=== PATIENT | female | born 1950 | race Caucasian/White ===

== ENCOUNTER 2017-02-23 19:31 | Inpatient (IN) ==
--- NOTE | 2017-02-23 19:48 | Diag Imaging Result Doc PS360 ---
HEAD W/O CONTRAST - 02/23/2017 INDICATION: poss cva TECHNIQUE: A CT dose reduction protocol was used. COMPARISON: 05/19/2015 FINDINGS: The ventricles and sulci are normal in size and contour. No intracranial mass or hemorrhage. The skull is intact. The sinuses mastoids and middle ears are clear. IMPRESSION: Negative exam. Electronically signed by Luis Colorado 02/23/2017 7:46 PM
[2017-02-23 20:47] LABS: MANUAL DIFF NEEDED? NO; URINE CULTURE NEEDED? NO; URINE MICRO REVIEW NEEDED? NO; URINE SOURCE CATH
[2017-02-23 20:53] LABS: BASO% 0.5 % (0.0-0.8); EOS# 0.09 X1000 (0.0-0.7); EOS% 0.6 % (0.0-10.0); HEMATOCRIT 41.7 % (37.0-47.0); HEMOGLOBIN 13.6 g/dL (12.0-16.0); IMM GRAN# 0.04 X1000 (0.0-0.04); IMM GRAN% 0.3 % (0.0-0.5); LYMPH# 2.97 X1000 (1.2-3.4); LYMPH% 20.4 % (20.5-51.1); MCH 29.5 PG (27-31); MCHC 32.6 g/dL (33-37); MCV 90.5 FL (81-99); MONO# 1.13 X1000 (0.11-0.59); MONO% 7.8 % (1.7-9.3); MPV 10.8 FL (7.4-10.4); NEUT% 70.4 % (42.2-75.2); PLT 496 X1000 (130-400); RBC 4.61 XMIL (4.2-5.4)
[2017-02-23 20:54] LABS: BILIRUBIN URINE NEGATIVE (NEGATIVE); BLOOD URINE NEGATIVE (NEGATIVE); COLOR YELLOW; GLUCOSE URINE NEGATIVE (NEGATIVE); LEUKOCYTES URINE NEGATIVE (NEGATIVE); NITRITE URINE NEGATIVE (NEGATIVE); PH URINE 5.5; PROTEIN URINE 50 mg/dL (NEGATIVE); SP GRAVITY URINE 1.023; TURBIDITY URINE CLEAR (CLEAR); UROBILINOGEN URINE NORMAL (NORMAL)
[2017-02-23 20:55] LABS: UR EPITHELIAL CELLS <10 /HPF (<10); URINE BACTERIA NEGATIVE /HPF; URINE RBC <10 /HPF (<10); URINE WBC <10 /HPF (<10)
[2017-02-23 21:02] LABS: INR 1.02; PROTIME 10.7 Seconds (9.2-11.7); PTT 25.8 Seconds (22.0-36.0)
[2017-02-23 21:06] LABS: ALLEN TEST YES; BE 1.9 mmoll (-3.0-3.0); BLOOD TYPE ARTERIAL; DRAW SITE R RADIAL; METHB 1.5 % (0.0-1.5); O2(CT) 17.7 mL/dL (15.0-23.0); PO2(98.6) 83 mmHg (60-100); SAMPLE BLOOD; THB 14.2 g/dL (11.5-17.4); pH(98.6) 7.31 (7.35-7.45)
[2017-02-23 21:10] LABS: PCO2(98.6) 59 mmHg (35-45)
[2017-02-23 21:10] LABS: AGAP 24; ALBUMIN 4.5 g/dL (3.5-5.0); ALKALINE PHOSPHATASE 127 U/L (32-104); BUN 15 mg/dL (8-22); CALCIUM 10.3 mg/dL (8.8-10.2); CHLORIDE 92 mmol/L (98-107); CK PROFILE 27 U/L (24-173); COSMO 274; GOT 11 U/L (10-30); GPT < 5 U/L (10-36); POTASSIUM 3.3 mmol/L (3.5-5.1); SODIUM 135 mmol/L (136-145); TCO2 19 mmol/L (25-35); TOTAL PROTEIN 7.5 g/dL (6.3-8.3); UR AMPHETAMINES QUAL NONE DETECTED (NONE DETECT); UR BARBITUATES QUAL NONE DETECTED (NONE DETECT); UR BENZODIAZEPIN QUAL PRESUMPTIVE POSITIVE (NONE DETECT); UR CANNABINOIDS QUAL NONE DETECTED (NONE DETECT); UR COCAINE QUAL NONE DETECTED (NONE DETECT); UR METHADONE QUAL NONE DETECTED (NONE DETECT); UR OPIATES QUAL PRESUMPTIVE POSITIVE (NONE DETECT); UR OXYCODONE QUAL PRESUMPTIVE POSITIVE (NONE DETECT); UR PCP QUAL NONE DETECTED (NONE DETECT)
[2017-02-23 21:11] LABS: MODALITY CANNULA
--- NOTE | 2017-02-23 21:38 | Diag Imaging Result Doc PS360 ---
CHEST-PORTABLE - 02/23/2017 INDICATION: AMS TECHNIQUE: COMPARISON: 05/19/2015 FINDINGS: There are surgical changes to the cervical spine. Surgical clips are injected over the right neck and right upper lobe. These are stable from prior. No focal infiltrates, pneumothorax, or pleural effusion. Heart size and pulmonary vascularity is top normal. IMPRESSION: No acute disease. Electronically signed by Luis Colorado 02/23/2017 9:35 PM
--- NOTE | 2017-02-23 21:45 | PROVIDER DOCUMENTATION ---
This chart was entered by Catina Yarbrough Scribe, acting as scribe for Damien Tiwari MD. HPI-Neurological Disorder - General Chief Complaint: Stroke-Like Symptoms Stated Complaint: seizure Time Seen by Provider: 02/23/17 19:49 Source: family, EMS Allergies/Adverse Reactions: Patient Allergies Allergy/AdvReac Type Severity Reaction Status Date / Time onion Allergy Unknown Verified 02/23/17 20:21 Sulfa (Sulfonamide Allergy "put me in Verified 02/23/17 20:21 Antibiotics) a coma" clarithromycin [From Biaxin] AdvReac NAUSEA Verified 02/23/17 20:21 Home Medications: Home Medication List Medication Instructions Recorded Confirmed Last Taken Type Carisoprodol [Soma] 350 mg PO Q6-8H PRN PRN 05/19/15 05/19/15 Unknown History Morphine Sulfate [Ms Contin] 60 mg PO BID 05/19/15 05/19/15 Unknown History Oxycodone HCl/Acetaminophen 1 tab PO Q8H PRN 05/19/15 05/19/15 Unknown History [Percocet 10-325 mg Tablet] Promethazine [Phenergan] 25 mg PO Q12H PRN PRN 05/19/15 05/19/15 Unknown History - History of Present Illness-Neuro Nature of Presenting Problem: 67 Y/O F presents to ER by EMS after having Seizure. EMS states that they were called for seizure for 20 mins. EMS states that pt was out in from last night after seizure and started seizing again. Severity: reports: moderate Onset/Duration: reports: just prior to arrival Timing: reports: improving Associated Symptoms: reports: seizures Review of Systems - Adult - REVIEW OF SYSTEMS - ADULT Constitutional: reports: no symptoms reported Eyes: reports: no symptoms reported Ears, Nose, Mouth & Throat: reports: no symptoms reported Cardiovascular: reports: no symptoms reported Respiratory: reports: no symptoms reported Gastrointestinal: reports: no symptoms reported Genitourinary: reports: no symptoms reported Musculoskeletal: reports: no symptoms reported Integumentary: reports: no symptoms reported Neurological: reports: see HPI, seizure Psychiatric: reports: no symptoms reported Endocrine: reports: no symptoms reported Hematologic/Lymphatic: reports: no symptoms reported Allergic/Immunologic: reports: no symptoms reported All Other Systems: Reviewed and Negative Past History - Adult - PAST MEDICAL HISTORY-ADULT Review of Records: reports: Old Records Reviewed, Nursing Assessment Review Cardiovascular: reports: AL Gastrointestinal: reports: GERD Musculoskeletal: reports: chronic pain (on Oxycodone 10, Soma, Morphine ER 60-- all TID), orthopedic injury Endocrine/Immune: reports: thyroid disorder Other Conditions: reports: MRSA (staph) - PRIOR SURGERIES/PROCEDURES Surgical/Procedure History: reports: cholecystectomy, hysterectomy - IMMUNIZATION STATUS Childhood Immunizations: See Nurse Assessment Flu Vaccine: See Nurse Assessment - SOCIAL HISTORY Smoking: cigarettes Provider spent 3-5 mins advising pt. on dangers of tobacco.: Discussed manners to quit use, and f/u contacts for add'l counseling. Physical Exam- Neurological - Physical Exam-Neuro Initial Vital Signs Reviewed: Yes General Appearance: mild distress, combative Eye Exam: bilateral eye: abnormal pupil, other (deviation to L) HENMT: moist mucous membranes, normal ENT inspection, TMs normal Head Injury: no evidence of injury. negative: active bleeding Neck: non-tender, full range of motion, supple Respiratory: chest non-tender, lungs clear, normal breath sounds, no pleuratic chest pain Cardiovascular: no edema, no gallop, tachycardia Abdominal Exam: normal bowel sounds, non tender, soft Extremity: normal inspection. negative: no pedal edema, no calf tenderness impregnating helper Exam: abnormal eye position (to Right). negative: facial droop Motor/Sensory: positive Babinski's sign (R), weak motor strength LLE Neurologic: sensory deficit. negative: facial droop, focal weakness Integumentary: normal color, normal turgor, warm/dry Progress - PLAN OF CARE/RESULTS Progress/Plan/Lab Results: Vital Signs - 8 hr 02/23/17 20:55 Pulse Rate 106 H Respiratory Rate 22 Blood Pressure 179/111 O2 Sat by Pulse Oximetry 95 Laboratory Results - last 24 hr 02/23/17 02/23/17 02/23/17 19:50 19:50 19:50 WBC 14.55 H RBC 4.61 Hgb 13.6 Hct 41.7 MCV 90.5 MCH 29.5 MCHC 32.6 L RDW Std Deviation 14.6 H Plt Count 496 H MPV 10.8 H Immature Gran % (Auto) 0.3 Neut % (Auto) 70.4 Lymph % (Auto) 20.4 L [place] % (Auto) 7.8 Eos % (Auto) 0.6 Baso % (Auto) 0.5 Immature Gran # (Auto) 0.04 Neut # (Auto) 10.25 H Lymph # (Auto) 2.97 [place] # (Auto) 1.13 H Eos # (Auto) 0.09 Baso # (Auto) 0.07 PT INR PTT (Actin FS) Specimen Type Sample Site pH pCO2 pO2 HCO3 Base Excess Oxyhemoglobin ABG O2 Sat (Calculated) ABG O2 Saturation ABG Carboxyhemoglobin ABG Methemoglobin Bradley Test A-a O2 Difference Total Hemoglobin Lactate Liter Flow Blood Gas Modality FiO2 % Sodium 135 L Potassium 3.3 L Chloride 92 L Carbon Dioxide 19 L Anion Gap 24 BUN 15 Creatinine 1.2 H Estimated GFR/1.73 m2 45 BUN/Creatinine Ratio 13 Glucose 152 H Calculated Osmolality 274 Calcium 10.3 H Total Bilirubin 0.10 L AST 11 ALT < 5 L Alkaline Phosphatase 127 H Creatine Kinase 27 Troponin T Total Protein 7.5 Albumin 4.5 Globulin 3.0 Albumin/Globulin Ratio 1.5 Plasma Lactate Urine Source Urine Color Urine Turbidity Urine pH Ur Specific Pe Ell Urine Protein Ur Glucose (Stick) Ur Ketones (Stick) Urine Blood Urine Nitrite Urine Bilirubin Urobilinogen Dipstick Urine Leukocytes Urine WBC (Auto) Urine RBC (Auto) U Epithel Cells (Auto) Urine Bacteria (Auto) Urine Opiates Screen Ur Oxycodone Screen Ur Methadone, Qual Ur Barbiturates Screen Ur Phencyclidine Scrn Ur Amphetamines Screen U Benzodiazepines Scrn Urine Cocaine Screen U Cannabinoids Screen Plasma/Serum Ethyl Alc 02/23/17 02/23/17 02/23/17 19:50 19:50 19:50 WBC RBC Hgb Hct MCV MCH MCHC RDW Std Deviation Plt Count MPV Immature Gran % (Auto) Neut % (Auto) Lymph % (Auto) [place] % (Auto) Eos % (Auto) Baso % (Auto) Immature Gran # (Auto) Neut # (Auto) Lymph # (Auto) [place] # (Auto) Eos # (Auto) Baso # (Auto) PT 10.7 INR 1.02 PTT (Actin FS) 25.8 Specimen Type Sample Site pH pCO2 pO2 HCO3 Base Excess Oxyhemoglobin ABG O2 Sat (Calculated) ABG O2 Saturation ABG Carboxyhemoglobin ABG Methemoglobin Bradley Test A-a O2 Difference Total Hemoglobin Lactate Liter Flow Blood Gas Modality FiO2 % Sodium Potassium Chloride Carbon Dioxide Anion Gap BUN Creatinine Estimated GFR/1.73 m2 BUN/Creatinine Ratio Glucose Calculated Osmolality Calcium Total Bilirubin AST ALT Alkaline Phosphatase Creatine Kinase Troponin T < 0.010 Total Protein Albumin Globulin Albumin/Globulin Ratio Plasma Lactate Urine Source CATH Urine Color YELLOW Urine Turbidity CLEAR Urine pH 5.5 Ur Specific Pe Ell 1.023 Urine Protein 50 A Ur Glucose (Stick) NEGATIVE Ur Ketones (Stick) 40 A Urine Blood NEGATIVE Urine Nitrite NEGATIVE Urine Bilirubin NEGATIVE Urobilinogen Dipstick NORMAL Urine Leukocytes NEGATIVE Urine WBC (Auto) <10 Urine RBC (Auto) <10 U Epithel Cells (Auto) <10 Urine Bacteria (Auto) NEGATIVE Urine Opiates Screen Ur Oxycodone Screen Ur Methadone, Qual Ur Barbiturates Screen Ur Phencyclidine Scrn Ur Amphetamines Screen U Benzodiazepines Scrn Urine Cocaine Screen U Cannabinoids Screen Plasma/Serum Ethyl Alc 02/23/17 02/23/17 02/23/17 19:50 19:50 20:55 WBC RBC Hgb Hct MCV MCH MCHC RDW Std Deviation Plt Count MPV Immature Gran % (Auto) Neut % (Auto) Lymph % (Auto) [place] % (Auto) Eos % (Auto) Baso % (Auto) Immature Gran # (Auto) Neut # (Auto) Lymph # (Auto) [place] # (Auto) Eos # (Auto) Baso # (Auto) PT INR PTT (Actin FS) Specimen Type ARTERIAL Sample Site R RADIAL pH 7.31 L pCO2 59 H* pO2 83 HCO3 26.2 H Base Excess 1.9 Oxyhemoglobin 88.6 L* ABG O2 Sat (Calculated) 17.7 ABG O2 Saturation 96.0 ABG Carboxyhemoglobin 6.20 H* ABG Methemoglobin 1.5 Bradley Test YES A-a O2 Difference 71.0 Total Hemoglobin 14.2 Lactate 1.30 Liter Flow 3.0 Blood Gas Modality CANNULA FiO2 % 32.0 Sodium Potassium Chloride Carbon Dioxide Anion Gap BUN Creatinine Estimated GFR/1.73 m2 BUN/Creatinine Ratio Glucose Calculated Osmolality Calcium Total Bilirubin AST ALT Alkaline Phosphatase Creatine Kinase Troponin T Total Protein Albumin Globulin Albumin/Globulin Ratio Plasma Lactate 6.5 H Urine Source Urine Color Urine Turbidity Urine pH Ur Specific Pe Ell Urine Protein Ur Glucose (Stick) Ur Ketones (Stick) Urine Blood Urine Nitrite Urine Bilirubin Urobilinogen Dipstick Urine Leukocytes Urine WBC (Auto) Urine RBC (Auto) U Epithel Cells (Auto) Urine Bacteria (Auto) Urine Opiates Screen PRESUMPTIVE POSITIVE A Ur Oxycodone Screen PRESUMPTIVE POSITIVE A Ur Methadone, Qual NONE DETECTED Ur Barbiturates Screen NONE DETECTED Ur Phencyclidine Scrn NONE DETECTED Ur Amphetamines Screen NONE DETECTED U Benzodiazepines Scrn PRESUMPTIVE POSITIVE A Urine Cocaine Screen NONE DETECTED U Cannabinoids Screen NONE DETECTED Plasma/Serum Ethyl Alc Orders Category Date Time Status Cardiac Monitoring DIRECTED Care 02/23/17 20:41 Active Finger Stick Blood Sugar (ED) DIRECTED Care 02/23/17 20:41 Active Saline Loc NOW Care 02/23/17 20:41 Active CHEST-PORTABLE [RAD] Stat Exams 02/23/17 20:41 Completed HEAD W/O CONTRAST [CT] Stat Exams 02/23/17 19:37 Completed ABG [RESP] Routine Lab 02/23/17 20:55 Completed ALCOHOL BLOOD Stat Lab 02/23/17 19:50 Completed CBC WITH ELECTRONIC DIFF [HEME] Stat Lab 02/23/17 19:50 Completed CK PROFILE [SP CHEM] Stat Lab 02/23/17 19:50 Completed COMPREHENSIVE METABOLIC PANEL [CHEM] Stat Lab 02/23/17 19:50 Completed LACTATE, PLASMA [CHEM] Stat Lab 02/23/17 19:50 Completed PROTIME WITH INR [COAG] Stat Lab 02/23/17 19:50 Completed PTT [COAG] Stat Lab 02/23/17 19:50 Completed TROPONIN T Stat Lab 02/23/17 19:50 Completed URINALYSIS W/POSS RFLX CULT-1 [URINALYSIS] Stat Lab 02/23/17 19:50 Completed URINE DRUG SCREEN Stat Lab 02/23/17 19:50 Completed Pulse Oximetry Stat Oth 02/23/17 20:41 Active EKG [EKG] Stat Ther 02/23/17 19:53 Ordered EKG [EKG] Stat Ther 02/23/17 20:41 Ordered Result Diagrams: 02/23/17 19:50 02/23/17 19:50 - EKG 1 Time of EKG reading by physician:: 19:44 EKG Read and Signed by:: Damien Tiwari EKG Interpretation (*Must complete 3 of following elements*): Abnormal Rate: 115 Rhythm: sinus tachycardia with frequent ventricular-paced complexes Comments: Abnormal ECG 2 Time of EKG reading by physician:: 21:14 EKG Read and Signed by:: Damien Tiwari EKG Interpretation (*Must complete 3 of following elements*): Abnormal Rate: 103 Rhythm: sinus tachtcardia Comments: abnormal ECG - XRAY 1 XRAY: Bilateral XRAY Study: Chest Impression: Normal XRAY Interpretation: no acute disease bt radiologist - CT/MRI 1 CT Study: Head Impression: Normal CT Results: negative exam by radiologist - CONSULTS/PCP/HOSPITALIST Notification #1 *Consult/PCP/Hospitalist*: Time Discussed: 21:40 Reason/Comments: discussed about Pt Consult Disposition: Admit Departure - Departure Date of Disposition Decision: 02/23/17 Time of Disposition Decision: 21:42 DIAGNOSIS: Seizure Opiate addiction Qualifiers: Substance use status: with unspecified opioid-induced disorder Qualified Code(s ): F11.29 - Opioid dependence with unspecified opioid-induced disorder Disposition: ADMITTED INPATIENT 09 Certified Medical Emergency: Emergent Condition: Fair Referrals and Follow-Ups: None,PCP [Primary Care Provider] - - Critical Care Note This patient required my direct & personal management of CC.: Yes Total Time (mins): 40 Critical Care Statement: This patient required my direct personal management to treat or rule out processes, the absence of which, could potentiallly result in sudden, clinically significant life or limb threatening deterioration. Attestation - Physician/ [place] Attestation Patient care was provided by Advanced Practice Provider:: No The physician spent face to face time with patient:: Yes Advanced Practice Provider documentation review:: Supervising physician onsite and consulted in the evaluation and care of this patient. The physician did have a face to face encounter with the patient. This chart was documented by the indicated scribe, (Catina Yarbrough Scribe) and accurately reflects the services I performed and decisions made by me, Damien Tiwari MD, as attested by the provider's signature.
[2017-02-23] MEDS ORDERED: ATIVAN ONE (21:55)
[2017-02-23] MEDS ORDERED: ATIVAN IV ONE (22:04)
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
[2017-02-24] MEDS ORDERED: MORPHINE IV PRN (03:23)
[2017-02-24] MEDS: ZOFRAN IV PRN (03:47)
[2017-02-24] MEDS: LOVENOX SUBQ SCH (05:33)
[2017-02-24] MEDS: NS 1,000 ML IV SCH ×3 (05:33→19:16)
--- NOTE | 2017-02-24 05:34 | EKG Report ---
Test Performed on : 02/23/2017 7:44:06 PM Test Reason : seizure Blood Pressure : / mmHG Vent. Rate : 115 BPM Atrial Rate : 115 BPM P-R Int : 150 ms QRS Dur : 064 ms QT Int : 328 ms P-R-T Axes : 070 054 -61 degrees QTc Int : 453 ms Sinus tachycardia. with frequent ventricular-paced complexes Marked ST abnormality, possible inferior subendocardial injury Abnormal ECG When compared with ECG of 11-JUN-2014 09:55, Electronic ventricular pacemaker has replaced Sinus rhythm. Unconfirmed Result
--- NOTE | 2017-02-24 05:34 | EKG Report ---
Test Performed on : 02/23/2017 9:14:09 PM Test Reason : AMS Blood Pressure : / mmHG Vent. Rate : 103 BPM Atrial Rate : 103 BPM P-R Int : 170 ms QRS Dur : 070 ms QT Int : 268 ms P-R-T Axes : 067 051 258 degrees QTc Int : [address] \T\ T wave abnormality, consider inferolateral ischemia Abnormal ECG When compared with ECG of 23-FEB-2017 19:44, (Unconfirmed) Sinus rhythm. has replaced Electronic ventricular pacemaker Unconfirmed Result
[2017-02-24 05:50] LABS: BASO% 0.1 % (0.0-0.8); EOS# 0.08 X1000 (0.0-0.7); EOS% 0.5 % (0.0-10.0); HEMATOCRIT 41.7 % (37.0-47.0); HEMOGLOBIN 13.5 g/dL (12.0-16.0); IMM GRAN# 0.04 X1000 (0.0-0.04); IMM GRAN% 0.2 % (0.0-0.5); MANUAL DIFF NEEDED? YES; MCH 29.7 PG (27-31); MCHC 32.4 g/dL (33-37); MCV 91.9 FL (81-99); MONO# 0.72 X1000 (0.11-0.59); MONO% 4.5 % (1.7-9.3); MPV 10.3 FL (7.4-10.4); NEUT% 89.7 % (42.2-75.2); PLT 385 X1000 (130-400); RBC 4.54 XMIL (4.2-5.4)
[2017-02-24 05:57] LABS: AGAP 18; BUN 15 mg/dL (8-22); CALCIUM 9.2 mg/dL (8.8-10.2); CHLORIDE 92 mmol/L (98-107); COSMO 277; POTASSIUM 3.8 mmol/L (3.5-5.1); SODIUM 137 mmol/L (136-145); TCO2 27 mmol/L (25-35)
[2017-02-24 05:58] LABS: ALLEN TEST YES; BE 0.3 mmoll (-3.0-3.0); BLOOD TYPE ARTERIAL; DRAW SITE R RADIAL; METHB 1.9 % (0.0-1.5); O2(CT) 18.4 mL/dL (15.0-23.0); PO2(98.6) 101 mmHg (60-100); SAMPLE BLOOD; SAO2 97.5 % (95.0-100.0)
[2017-02-24 05:59] LABS: MODALITY CANNULA; PCO2(98.6) 57 mmHg (35-45)
[2017-02-24 06:10] LABS: BANDS 12 % (0-1); LYMPHS 4 % (21-51); MONO 4 % (1-9)
[2017-02-24] MEDS: ATIVAN IV PRN ×4 (06:59→21:47)
[2017-02-24] MEDS: ZOSYN 3.375 GM/NS 3.375 GM/50 ML IVPB IV SCH ×3 (07:09→12:51)
--- NOTE | 2017-02-24 08:07 | Diag Imaging Result Doc PS360 ---
EXAM: CT THORAX W/O CONTRAST HISTORY: leucocytosis, possible asp pna TECHNIQUE: CT chest without contrast. Dose reduction protocol. COMPARISON: None. FINDINGS: No pleural effusions. Heart is not enlarged. There is a focal aneurysm to the proximal descending thoracic aorta with a maximum diameter of 4.1 cm. Moderate atherosclerosis. There is an additional focal dilatation in the proximal abdominal aorta with a maximum diameter of 4.6 cm. No enlarged mediastinal lymph nodes. There are mild emphysematous changes. Increased interstitial markings in the right apex consistent with fibrosis. Mild increased interstitial markings in the left base believed to be atelectasis. No consolidation. Limited images through the upper abdomen reveal cholecystectomy. 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 There is at least moderate atherosclerosis including the coronary arteries. Electronically signed by Rolando Reynolds 02/24/2017 8:04 AM
[2017-02-24] MEDS: MORPHINE IV SCH ×3 (08:35→20:54)
[2017-02-24] MEDS ORDERED: MORPHINE IV SCH (09:00)
--- NOTE | 2017-02-24 09:41 | Diag Imaging Result Doc PS360 ---
EXAM: MRI BRAIN W W/O CONTRAST HISTORY: recurrent seizures. TECHNIQUE: Axial, sagittal, and coronal images obtained in multiple sequences COMPARISON: Compared to several prior head CTs FINDINGS: No recent infarct. There are only small vague areas of increased signal on the T2 and FLAIR images which may be mild microvascular ischemic changes. No mass or midline shift. No enhancing lesion on the post contrasted images. No hydrocephalus. No epidural or subdural fluid collection. No sinus opacification and no air-fluid levels. IMPRESSION: Nonspecific small areas of increased signal which may be mild microvascular ischemic changes, but no recent infarct or mass. Electronically signed by Rolando Reynolds 02/24/2017 9:39 AM
[2017-02-24] MEDS ORDERED: NICODERM PATCH TD ONE (14:35)
--- NOTE | 2017-02-24 14:53 | CONSULTATION ---
DATE OF CONSULTATION: 02/24/2017 REASON FOR CONSULT: The patient is seen in consultation at the request of Dr. Handley for evaluation of seizures. HISTORY OF PRESENT ILLNESS: 67-year-old, female, with history of coronary disease, chronic pain with multiple surgeries who was admitted due to seizures. states for the last 5 days she has had nausea and vomiting with sick stomach feeling and has been unable to keep her pain medications down consistently. She does have this GI upset from time to time so that is not necessarily new for her. They were sitting on the couch together and all of a sudden she began violently shaking all over. Her pupils were dilated and her eyes were half closed. She was not responding. There was bowel incontinence. It lasted about 2-3 minutes. EMS brought the patient for evaluation. In the emergency room she had another episode similar to the 1 at home and was given 2 mg of IV Ativan. Apparently about a year ago the patient had a similar event which was the 1st time that anything like this has ever happened. She was evaluated in [place] and has been following with Dr. Lawrence there. There was note of an abnormality on her brain imaging that the describes was light colored and a couple of areas that were in this shape of "the letters C." He reports that this has been followed by Dr. Lawrence who repeated the imaging around [place] time and said that it has been improving slowly. The states that he understood Dr. Lawrence to tell him that there may have been some infection in the brain at 1 point, that may have caused the seizure. No seizure medications had been prescribed and she has not had any events up until now. PAST MEDICAL HISTORY: Coronary disease with stents, hypothyroidism, chronic pain syndrome on chronic pain medications, esophageal strictures, multiple neck surgeries, left femur fracture with multiple surgeries to the area, elbow surgery, multiple endoscopies, apparently a pain pump was placed many years ago, multiple esophageal dilatation procedures. SOCIAL HISTORY: She is a current smoker. She apparently does not drink or use illicit substances. She is . FAMILY HISTORY: Noncontributory. ALLERGIES: To sulfa and clarithromycin. CURRENT MEDICATIONS: Reviewed in the chart. PHYSICAL EXAMINATION: Vital Signs: She has been afebrile since her admission. Blood pressure 152/79. It was elevated upon admission at 179/111. Pulse 85, respirations 14. General Exam: This is an chronically ill appearing female lying in bed on BiPAP. She is reported to have just recently received some sedating medications for a procedure. HEENT: Normal. Neck: Supple. No meningismus. Trachea midline. Cardiovascular: Intact pulses. Regular rate, appears regular in rhythm. Respirations: She is on BiPAP. No accessary muscles or increased work of breathing. No audible wheezes. Abdomen: Soft, nontender, nondistended. Extremities: Warm and well perfused. No edema. Intact pulses. Neurologic: Mental status: She is lethargic and has just reported to have received some sedation for a procedure. She moans and moves around to sternal rub. She is not following commands and not speaking. She is resisting passive eye opening and is resisting passive movement of her extremities. Cranial nerves: Pupils 3 mm OU and reactive. Gaze is conjugate. There is horizontal eye movement with passive head turning. Face appears to be symmetric with equal grimace. Motor exam: Normal bulk and tone. She is moving all of her extremities symmetrically and at least against gravity. Coordination and gait were untestable at this time. Sensory exam: She responds to mild noxious stimuli in all extremities. DIAGNOSTICS: Brain MRI with and without contrast was personally reviewed. There is no infarct or mass lesion. There are some small areas of increased signal on T2 and flare that are perhaps mild microvascular ischemic changes. Nothing enhances. There are 2 areas posteriorly which seem to follow around the sulci and may be viewed as being in a "C shape." I presume this is what the patient's is referring to. That is being followed by Dr. Lawrence and has thus been noted in the past possibly. LABORATORY STUDIES: White count 16. Platelets 385,000. INR 1. PCO2 of 57. Sodium 137, potassium 3.8, BUN 15, creatinine 0.9, glucose 136, calcium 9.2. Alkaline phosphatase 127. Lactate was 6.5. TSH 22.6. Urinalysis with 50 protein, 40 ketones. Toxicology presumptive positive for opiates, oxycodone, benzodiazepines. ASSESSMENT AND PLAN: 67-year-old, female with chronic pain on opioid medications with recent inability to consistently keep these down due to a GI illness presenting with seizure like events as detailed above. There is a history of 1 event about 1 year ago that is similar in description to the current events. Will obtain a routine EEG for further evaluation. Currently her exam is nonfocal which is reassuring. The MRI showed nothing acute but did show some areas of increased signal detailed above which sounds to be something that the patient has had and has been followed by Dr. Lawrence in [place] possibly. This may be microvascular ischemic changes. We will plan to review the EEG for evidence of increased propensity for seizures. I do not think that any relative opiate withdrawal would typically be responsible for seizures, and she is not known to be on any benzodiazepines at home of which withdrawal would be more likely to provoke seizures. Thank you for this consultation. Will follow. cc: Molly Schmid MD
--- NOTE | 2017-02-24 15:30 | PROGRESS NOTE ---
DATE: 02/24/2017 SUBJECTIVE: This patient is sleepy, but arousable. Family members at the bedside. She is not complaining at this moment of pain. No more seizure activity during this hospitalization. OBJECTIVE: Vital Signs: Temperature 98.6 degrees, pulse 72, respiratory rate 21, blood pressure 116/86, oxygen saturation 100% on 3 L of nasal cannula. HEENT: Head normocephalic. No trauma. PERRLA. Neck: Supple. She has an eschar at the level of the posterior neck. Central trachea. Chest: Clear to auscultation. No wheezing. No rales. Abdomen: Soft, nontender, nondistended. No hepatosplenomegaly. Extremities: No edema. No clubbing. No cyanosis. Neurological examination: The patient is sleepy. She is very somnolent. She was not answering any kind of questions for me or following commands, but she moves with pain stimulation. She localized. LABORATORY: WBC 16.1, hemoglobin 13.5, hematocrit 41.7 platelets 3895. Sodium 137, potassium 3.8, chloride 92, bicarbonate 27, BUN 15, creatinine 0.9 glucose 136, calcium 9.2. ASSESSMENT AND PLAN: 1. Seizure disorder. Apparently she had a seizure 1 year ago; it apparently was secondary to an infection. She has been seen by Dr. Lawrence, neurologist in [place]. I am not quite sure if this is some kind of opiate or benzodiazepine withdrawal. Neurology Department has been consulted. We will await for their recommendations. MRI did not show any acute process. CT of the chest showed emphysematous changes and descending aortic aneurysm. 2. History of coronary artery disease. She is not complaining of chest pain. Apparently she had a stent placed before. We will keep an eye on this patient. 3. Hypothyroidism. Continue with home medications. 4. Mild acute kidney injury, resolved. Continue with intravenous fluids. 5. Hypokalemia, resolved. 6. Nausea and vomiting. She has no complaint of nausea, vomiting at this moment. Apparently she had a stricture between the stomach and her ileum as per the , but I am not quite sure about this. Dr. Jensen apparently saw this patient as an outpatient. So, if this patient continues having nausea and vomiting, probably we need to consult Dr. Jensen to evaluate this patient. 7. CT of the chest with emphysematous changes. Likely this patient has chronic obstructive pulmonary disease not in exacerbation at this moment. Continue to monitor. 8. Tobacco abuse. This patient is still smoking. Once this patient is awake, we need to start cessation education. This patient was admitted secondary to a seizure disorder. Apparently the last time she had a seizure was 1 year ago, and she was treated at [place]. Her neurologist was Dr. Lawrence. Today she is somnolent and not following commands, but she is breathing fine and the vital signs are stable. Family members at the bedside and I explained to them the whole situation, including CT of the chest and brain MRI results pending Neurology Department evaluation and recommendations. Probably this is a seizure secondary to withdrawal, but I am not quite sure. 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 If she continues to have nausea and vomiting, probably we will need to consult Dr. Jensen. As per the , he knows the patient. CRITICAL CARE TIME: 35 minutes. cc: Yo Mann MD
[2017-02-24] MEDS: ZOSYN 3.375 GM in NS 50 ML IV SCH ×2 (17:21→23:45)
[2017-02-24] MEDS ORDERED: LIDODERM TOP SCH (22:46)
[2017-02-25] MEDS: ATIVAN IV PRN ×4 (00:44→16:26)
[2017-02-25] MEDS ORDERED: OFIRMEV 1000 MG/ISOTONIC SOLN 1,000 MG/100 ML BOTTLE IV PRN (01:19)
[2017-02-25] MEDS: MORPHINE IV SCH ×4 (03:10→20:25)
[2017-02-25] MEDS: ZOSYN 3.375 GM in NS 50 ML IV SCH ×4 (05:05→23:12)
[2017-02-25] MEDS: LOVENOX SUBQ SCH (05:06)
[2017-02-25 06:29] LABS: MANUAL DIFF NEEDED? NO
[2017-02-25 06:36] LABS: EOS# 0.01 X1000 (0.0-0.7); EOS% 0.1 % (0.0-10.0); HEMOGLOBIN 12.2 g/dL (12.0-16.0); IMM GRAN# 0.02 X1000 (0.0-0.04); IMM GRAN% 0.2 % (0.0-0.5); LYMPH# 0.91 X1000 (1.2-3.4); LYMPH% 8.6 % (20.5-51.1); MCH 30.3 PG (27-31); MCV 91.8 FL (81-99); MONO# 0.69 X1000 (0.11-0.59); MONO% 6.5 % (1.7-9.3); MPV 10.8 FL (7.4-10.4); NEUT% 84.6 % (42.2-75.2); PLT 291 X1000 (130-400); RBC 4.03 XMIL (4.2-5.4)
[2017-02-25 07:12] LABS: AGAP 19; BUN 12 mg/dL (8-22); CALCIUM 8.5 mg/dL (8.8-10.2); CHLORIDE 96 mmol/L (98-107); COSMO 277; POTASSIUM 3.2 mmol/L (3.5-5.1); SODIUM 139 mmol/L (136-145); TCO2 24 mmol/L (25-35)
[2017-02-25] MEDS: NS 1,000 ML IV SCH ×2 (07:26→20:44)
[2017-02-25] MEDS ORDERED: VANCOMYCIN IV PER PHARMACY MISC SCH (08:45)
[2017-02-25] MEDS ORDERED: KEPPRA 1,500 MG in NS 100 ML IV ONE (10:00)
--- NOTE | 2017-02-25 10:57 | PROGRESS NOTE ---
DATE: 02/25/2017 SUBJECTIVE: Patient is still sleepy but arousable. To my examination she still looks sleepy like she wants when she was admitted. She is not complaining of pain this moment. According to the family who is at bedside, she was a little bit more awake and she was also somewhat restless and she received Ativan at 5:30. So, I am thinking this could be related to the Ativan, why she is sleepy now. OBJECTIVE: Vital Signs: Temperature 98.0 degrees, heart rate 80, respiratory rate 18, blood pressure 146/64, O2 saturation 96% on room air. General Examination: This is a chronically ill- looking, 67-year-old female lying in bed, in no acute distress. HEENT : Head is normocephalic, atraumatic. Anicteric sclerae and pale conjunctivae. Mucous membranes dry. Neck: Supple. She has a scar at the level of the posterior neck. No lymphadenopathy. No thyromegaly. Cardiovascular: S1 and S2 heard. No murmurs, gallops, or rubs. Regular rate and rhythm. Respiratory: Clear bilaterally to auscultation. No work of breathing or using accessory muscles. No wheezing or rales noted. Abdomen: Soft, nontender, nondistended. Bowel sounds present. No organomegaly. Extremities: No clubbing, cyanosis, or edema. Peripheral pulses present in both legs. Neurological: Patient is very sleepy and somnolent. Does not answer any questions. LABORATORY DATA: White cell count 10.61, hemoglobin 12.2, hematocrit 37.0, platelets 291,000. BMP shows potassium 3.2. The rest of the BMP is okay. ASSESSMENT AND PLAN: 1. Seizure disorder. As we mentioned before, she had 1 episode 1 year ago. According to the family, she apparently had a WASHER MEAT infection at that time. She was seen by a neurologist in [place]. She was not started on any medication for seizures. This patient is still sleepy although as per nursing staff, this morning she was able to tell her name and date of . Dr. Schmid from neurology has evaluated this patient. She does not think this patient has developed opiate withdrawal, that rarely produces seizures. I think this patient could have the seizure because of benzodiazepine withdrawal because the UDS was positive for this substance at admission. In any case, we are going to watch this patient closely. Because family insist that this could be a WASHER MEAT infection because she looks actually the same as she was 1 year ago and considering that there is now blood culture results and she has had a temperature 100 degrees recently, will add vancomycin to her current treatment. An EEG was ordered also, so will see what Dr. Schmid has to say today. 2. History of coronary artery disease. Patient is not complaining of any chest pain. We will continue with the same management. 3. Hypothyroidism. The TSH at admission was 22.6 but it was rechecked yesterday and was 2.82 which is normal. At this time, we are going to continue with the same dose of Synthroid. 4. Acute kidney injury, resolved. 5. Hypokalemia. Potassium is 3.2 today so we are going to supplement it. 6. Nausea and vomiting. Apparently, this patient had a stricture between the stomach and ileum. Because of her clinical condition now, I do not think this patient can have any GI workup now. 7. Chronic obstructive pulmonary disease. Patient is not in any exacerbation. Patient is receiving breathing treatment with DuoNeb every 4-6 hours p.r.n. 8. Tobacco abuse. Apparently the patient is still smoking. When she is more awake will advise this patient strongly to quit smoking. Overall this patient is slowly progressing. At this point, we are going to continue with the same management for seizure and will add vancomycin to her current treatment considering that she had a temperature 100 degrees. Will continue to monitor this patient closely. CRITICAL CARE TIME: 37 minutes. cc: MD NOLAN Villa
--- NOTE | 2017-02-25 11:23 | EEG REPORT ---
DATE: 02/24/2017 REFERRING PHYSICIAN: Dr. Handley EEG #: #[id number]. DIRECTOR [facility]: Radha Weber. BACKGROUND INFORMATION TECHNIQUE: A digitally recorded EEG is obtained with 1 additional channel for EKG. HISTORY OF PRESENT ILLNESS: A 67-year-old, female admitted with two seizures. There was also a history of a seizure episode 1 year ago. It is described as shaking movements all over, lasting 2 or 3 minutes with fecal incontinence. An EEG is ordered to detect evidence of possible seizures. MEDICATIONS: The patient was given Ativan just prior to the EEG. EEG FINDINGS: A posterior dominant alpha rhythm is notably absent. The background consists of mixed frequencies; alpha, beta and theta greater than delta. No definite persistent focal slowing observed. Very frequent epileptiform discharges are seen within the right frontotemporal head regions. These are pseudo periodic and at times approach a 1 per second frequency. No seizures observed on the current study. Hyperventilation was not performed. Photic stimulation did not induce a photic driving response. No definite drowsiness patterns and no stage II sleep observed. The EKG demonstrates regular RR intervals. IMPRESSION AND CLINICAL CORRELATION: Abnormal routine EEG due to: 1. Very frequent epileptiform discharges emanating from the right frontotemporal head region, at times approaching a 1 per second frequency. Epileptiform discharges are suggestive of focal cortical irritability and possess epileptogenic potential. This is suggestive of, but not diagnostic of seizure disorder with focal onset. Clinical correlation is advised. cc: MD Sander Fam MD MTDD
[2017-02-25] MEDS ORDERED: VANCOMYCIN 1,750 MG in NS 250 ML IV ONE (12:00)
[2017-02-25] MEDS: NICODERM PATCH TD SCH (15:07)
--- NOTE | 2017-02-25 15:19 | PROGRESS NOTE ---
DATE: 02/25/2017 CHIEF COMPLAINT: Seizures. SUBJECTIVE: No acute events overnight. The patient did get a dose of Ativan this morning for apparent agitation. OBJECTIVE: Vital Signs: Reviewed. One low-grade temp of 100 degrees Fahrenheit around midnight. Otherwise afebrile. Blood pressure 152/79, pulse 96. General: This is a frail appearing female asleep in bed with the covers pulled up. She is on room air. She had recently received some Ativan for apparent agitation. HEENT: Normal. Neck: Supple without meningismus. Abdomen: Soft, nontender, nondistended. Extremities: Warm and well perfused. No edema. Neurologic: Mental status: She is lethargic although arouses more than compared to yesterday. She regards and dozes to sleep easily. With more constant stimulation she is able to tell me her name and that she is in the hospital. She knows her . When asking her further questions she replies "I do not want to." She follows a couple of simple commands. No complex commands. Cranial nerves: There may be a very slight asymmetry of the pupils with the left 1 very slightly larger than the right. Both around 3 mm and reactive briskly to 2 mm OU. Her ocular movements are full in the horizontal direction. There is horizontal eye movement with passive head turning as well. Face appears symmetric, equal when she shows me her teeth. Motor exam : Normal bulk and tone. Moving all of her extremities at least against gravity and there was some resistance against me passively moving her extremities. Sensory exam, responds to sensations in all extremities. DIAGNOSTICS: A routine EEG was personally reviewed. It showed very frequent epileptiform discharges within the right frontotemporal region. This is very suggestive of cortical irritability and increased propensity for seizures. No seizures were seen on the study. LABS: Reviewed. White count is normal today. PCO2 of 57. Sodium normal. Calcium slightly low at 8.5. TSH of 2.82. ASSESSMENT AND PLAN: 1. Seizures. The first seizure was one year ago. Now presenting with two more seizures. EEG shows very frequent epileptiform discharges in the right frontotemporal region which is very suggestive of focal cortical irritability and increased propensity for more seizures. Brain imaging did not show acute changes. Exam is nonfocal. No meningismus. Will load patient with keppra 1500mg iv x1 and start maintenance keppra 1g iv bid. Ok to switch to PO once patient is able. If there is any question of mental status worsening or further seizures, I would have a low threshold to repeat the EEG. Please replete any electrolytes that are low. Workup for evaluation of any underlying infectious etiologies should be considered given her recent low grade temp, although the fact that she had her 1st seizure 1 year ago makes this less likely. Would recommend holding sedating medications such as the Ativan that is being given prn for anxiety. Let's see if she can wake up more. It is okay to give the Ativan for seizure lasting 3 minutes (most spontaneously resolve before this time) or for back to back seizures. Seizure precautions should be in place. Lastly, she should have follow up with Dr. Lawrence (neurology in [place]) upon discharge. Her MRI should be followed and the reports that Dr. Lawrence has been following this. cc: Molly Schmid MD MTDD
[2017-02-25] MEDS: KEPPRA 1,000 MG in NS 100 ML IV SCH (20:29)
[2017-02-25] MEDS: LIDODERM TOP SCH (20:30)
[2017-02-25] MEDS: PERCOCET-10 PO PRN (23:21)
[2017-02-26] MEDS: ZOFRAN IV PRN ×3 (00:11→16:41)
[2017-02-26] MEDS: MORPHINE IV SCH ×4 (03:42→20:19)
[2017-02-26] MEDS: NS 1,000 ML IV SCH ×4 (03:45→17:55)
[2017-02-26] MEDS: ZOSYN 3.375 GM in NS 50 ML IV SCH ×3 (05:06→16:41)
[2017-02-26] MEDS: LOVENOX SUBQ SCH (05:06)
[2017-02-26] MEDS: VANCOMYCIN 1,250 MG in NS 250 ML IV SCH (05:45)
[2017-02-26] MEDS: PERCOCET-10 PO PRN ×2 (06:59→17:08)
[2017-02-26 08:15] LABS: MANUAL DIFF NEEDED? NO
[2017-02-26 08:18] LABS: BASO% 0.1 % (0.0-0.8); EOS# 0.01 X1000 (0.0-0.7); EOS% 0.1 % (0.0-10.0); HEMATOCRIT 34.2 % (37.0-47.0); HEMOGLOBIN 11.4 g/dL (12.0-16.0); IMM GRAN# 0.02 X1000 (0.0-0.04); IMM GRAN% 0.3 % (0.0-0.5); LYMPH% 14.3 % (20.5-51.1); MCH 30.1 PG (27-31); MCHC 33.3 g/dL (33-37); MCV 90.2 FL (81-99); MONO# 0.61 X1000 (0.11-0.59); MPV 10.2 FL (7.4-10.4); NEUT% 77.2 % (42.2-75.2); PLT 250 X1000 (130-400); RBC 3.79 XMIL (4.2-5.4)
[2017-02-26 08:44] LABS: AGAP 21; BUN 8 mg/dL (8-22); CALCIUM 7.9 mg/dL (8.8-10.2); CHLORIDE 98 mmol/L (98-107); COSMO 274; SODIUM 139 mmol/L (136-145); TCO2 20 mmol/L (25-35)
[2017-02-26] MEDS: NICODERM PATCH TD SCH (08:44)
[2017-02-26] MEDS: KEPPRA 1,000 MG in NS 100 ML IV SCH (08:44)
[2017-02-26 08:52] LABS: POTASSIUM 2.6 mmol/L (3.5-5.1)
--- NOTE | 2017-02-26 09:46 | PROGRESS NOTE ---
DATE: 02/26/2017 SUBJECTIVE: Patient is more alert and awake today. Patient able to tell her name, date of , recognize her family who is at bedside. He is complaining of back pain. OBJECTIVE: Vital Signs: Temperature 99.1 degrees, heart rate 74, respiratory rate 16, blood pressure 150/75, O2 saturation 97% on room air. General Examination: This is a chronically ill- looking, 67-year-old female, lying in bed in no acute distress. HEENT : Head is normocephalic, atraumatic. Anicteric sclerae and pale conjunctivae. Neck: Supple. No JVD noted. No carotid bruits. No lymphadenopathy. No thyromegaly. She had an eschar at the level of the posterior neck. Cardiovascular exam: S1, S2 heard. No murmurs, gallops , or rubs. Regular rate and rhythm. Respiratory exam: Clear bilaterally to auscultation. No work of breathing or using accessory muscles. Abdomen: Soft, nontender to palpation. Nondistended. Bowel sounds present. No organomegaly. Extremities: No clubbing, cyanosis or edema. Peripheral pulses present in both legs. Neurological exam: Patient is more alert and awake. Moves 4 extremities. LABORATORY DATA: White cell count 7.67, hemoglobin 11.4, hematocrit 34.2, platelets 250. Sodium 139, potassium 2.6, chloride 98, bicarbonate 20, BUN 8, creatinine 0.6. ASSESSMENT AND PLAN: 1. Seizure disorder. The patient has been evaluated by Dr. Schmid from neurology. The EEG showed very frequent epileptiform discharges in the right frontotemporal region, which is very suggestive of focal cortical irritability and increased propensity for more seizures. She recommended to start this patient on Keppra. Initially she was loaded with 1.5 grams intravenous and now she is on 1 gram intravenous twice daily. That medication can be switched easily to oral when patient is more stable. We will talk with the family to see if she is going to follow up with Dr. Lawrence in [place]. At this point, we will continue following recommendations from neurology. There was a concern from the family about possible central nervous system infection because apparently she had the same symptoms 1 year ago. Currently this patient is on vancomycin and Zosyn. White cell count is back to normal. She did not spike any fever. Blood cultures are still pending. I am planning to continue with both antibiotics until we see a negative blood culture. 2. History of coronary artery disease. Patient is not complaining of any chest pain. We will continue with the same medication. 3. Hypothyroidism. The last thyroid stimulating hormone that we have was 2.82. The patient reports taking Synthroid, but is not on the home list. We will instruct the nurse to call her pharmacy to make sure this patient was taking this medication, what dosage she was taking and then we will resume it. 4. Acute kidney injury, resolved. 5. Hypokalemia. Potassium is 2.6 today, so we are going to supplement it. 6. Nausea and vomiting. That condition is better. According to the family, she had a stricture between the stomach and the duodenum. I think she will need to have a gastrointestinal followup as an outpatient. 7. Chronic obstructive pulmonary disease. The patient is not on any exacerbation. Patient will receive breathing treatments as needed with DuoNeb every 4-6 hours. 8. Tobacco abuse. We will advise this patient to quit smoking when she is more alert. cc: Sander Carrasco MD MTDD
[2017-02-26] MEDS: POTASSIUM CHLORIDE 60 MEQ in NS 500 ML IV SCH ×2 (11:12→20:32)
[2017-02-26] MEDS: SODIUM CHLORIDE 0.9% INJ SCH (11:13)
[2017-02-26] MEDS: PROTONIX IV SCH (11:13)
--- NOTE | 2017-02-26 17:18 | PROGRESS NOTE ---
DATE: 02/26/2017 LOCATION: [facility] bed number [id number]. Ms. Serrano is much improved today. She is awake, alert, carrying on appropriate conversation, following simple commands consistently. She has full visual blanton on brief bedside testing. Extraocular movements are full. Facial motility is symmetric. She has grossly symmetric power on brief testing of the limbs. I did not test her gait. Neck is supple and clearly not meningitic. LABORATORY: Show continued improvement in WBC count, 16,000 on admission down to 7000 today. Blood sugar is down to 68. Calcium 10.3 on admission, down to 7.9. TSH was reported 22 earlier and 2.8 now. I reviewed her home medication list and she is alert enough now to corroborate some of that, but she is not certain about details, specifically, she is not certain that she did not run out of carisoprodol. Her other narcotics were listed and showed appropriate positive urine drug screen on admission. We discussed potential for seizure with meprobamate withdrawal following discontinuation of carisoprodol. She will be careful with her medicines. She had EEG showing prominent, frequent epileptiform discharges and started levetiracetam. She appears to be tolerating that very well. She does not have renal failure and we should be able to continue full dose levetiracetam. We can check a level later, if needed. No new suggestions today. Thanks for asking neurology to see Ms. Serrano. cc: MD NOLAN Alvares III
[2017-02-26] MEDS: LIDODERM TOP SCH (20:20)
[2017-02-27] MEDS: PERCOCET-10 PO PRN ×3 (00:53→22:18)
[2017-02-27] MEDS: ZOFRAN IV PRN (00:57)
[2017-02-27] MEDS: KEPPRA 1,000 MG in NS 100 ML IV SCH ×3 (02:00→21:08)
[2017-02-27] MEDS: NS 1,000 ML IV SCH ×4 (02:05→19:43)
[2017-02-27] MEDS: MORPHINE IV SCH (02:30)
[2017-02-27] MEDS: ZOSYN 3.375 GM in NS 50 ML IV SCH ×5 (02:31→22:22)
[2017-02-27] MEDS: VANCOMYCIN 1,250 MG in NS 250 ML IV SCH ×2 (03:10→20:09)
[2017-02-27 05:42] LABS: MANUAL DIFF NEEDED? NO
[2017-02-27 05:48] LABS: BASO% 0.3 % (0.0-0.8); EOS# 0.06 X1000 (0.0-0.7); EOS% 0.8 % (0.0-10.0); HEMATOCRIT 33.4 % (37.0-47.0); HEMOGLOBIN 11.2 g/dL (12.0-16.0); IMM GRAN# 0.02 X1000 (0.0-0.04); IMM GRAN% 0.3 % (0.0-0.5); LYMPH# 1.35 X1000 (1.2-3.4); LYMPH% 18.9 % (20.5-51.1); MCH 30.3 PG (27-31); MCHC 33.5 g/dL (33-37); MCV 90.3 FL (81-99); MONO# 0.58 X1000 (0.11-0.59); MONO% 8.1 % (1.7-9.3); MPV 10.6 FL (7.4-10.4); NEUT% 71.6 % (42.2-75.2); PLT 243 X1000 (130-400)
[2017-02-27 06:07] LABS: AGAP 18; BUN 6 mg/dL (8-22); CHLORIDE 102 mmol/L (98-107); COSMO 273; POTASSIUM 3.6 mmol/L (3.5-5.1); SODIUM 139 mmol/L (136-145); TCO2 19 mmol/L (25-35)
[2017-02-27] MEDS: SYNTHROID PO SCH (06:23)
[2017-02-27] MEDS: NICODERM PATCH TD SCH (09:01)
[2017-02-27] MEDS: PROTONIX IV SCH ×2 (09:02→20:14)
[2017-02-27] MEDS: MORPHINE IV PRN ×5 (09:02→23:04)
[2017-02-27] MEDS: SODIUM CHLORIDE 0.9% INJ SCH ×2 (09:02→20:14)
--- NOTE | 2017-02-27 10:43 | PROGRESS NOTE ---
DATE: 02/27/2017 SUBJECTIVE: The patient is more alert and awake. She is complaining of excruciating pain in her back. OBJECTIVE: Vital Signs: Temperature is 97.7, heart rate 66, respiratory rate 16, blood pressure 162/73, and O2 saturation 96% on room air. General: This is a chronically ill-looking 67-year- old female lying in bed in no acute distress looking older than her stated age. HEENT: The head is normocephalic and atraumatic. Neck: Supple. No JVD noted. No carotid bruits. No lymphadenopathy. Cardiovascular: S1 and S2 are heard. No murmurs, gallops, or rubs. Regular rate and rhythm. Respiratory: Clear bilaterally to auscultation. No work of breathing or use of accessory muscles. Abdomen: Soft and nontender to palpation and nondistended. Bowel sounds are present. No organomegaly. Extremities: No clubbing, cyanosis, or edema. Peripheral pulses are present in both legs. Neurological: The patient is more alert and awake and moves all 4 extremities. LABORATORY DATA: The white cell count is 7.14, hemoglobin 11.2, hematocrit 33.4, and platelets 243. BMP is unremarkable. ASSESSMENT AND PLAN: 1. Seizure disorder. The patient is stable. No more seizures since admission. The patient was evaluated by Neurology and the EEG suggested frequent epileptiform discharges so she was started on Keppra with initial dose at 1.5 g and now maintenance dosage is 1 g IV every 12 hours. We will continue with this medication. We were going to change to oral today but because she is going to have an EGD I prefer to continue with IV and then change it to oral tomorrow. She will see Dr. Lawrence in consult as an outpatient for Neurology follow up. As we mentioned in the previous note because of possible concern for central nervous system infection the patient has been started on vancomycin and Zosyn. Blood culture have been drawn and we will stop the antibiotics when the cultures return negative. Mental Status: She continues to improve. 2. History of coronary artery disease. The patient is not complaining of any chest pain. We will continue the same medication. 3. Chronic pain syndrome secondary to multiple neck surgeries. We had a long conversation with the patient and the family about the monitoring of pain here in the hospital. The patient's home dose of pain medications is morphine 60 mg p.o. b.i.d. extended release form and Percocet 10 mg three times per day as needed. When she was admitted to the hospital she was kept on only Percocet and now she is more awake and she reports feeling excruciating pain. We have explained to them that if we were to start MS Contin the mental status of this patient can be worse. Specific recommendations from Neurology were that we should avoid sedative medication like Ativan or pain medications but because I think she is really in pain and it is precluding her from starting working with Physical Therapy I will increase the frequency of morphine 4 mg from every 6 hours to every 3 hours p.r.n. and we will see how she does. The patient is still wanting to have morphine, MS Contin 60 mg b.i.d. restarted. I have explained in depth to the patient and the family about the risks of this so we will have another talk tomorrow regarding pain medications if this morphine IV does not help. 4. Hypothyroidism. The patient has been restarted on half the dosage of levothyroxine that she was taking before. 5. Acute kidney injury, resolved. 6. Hypokalemia, resolved. 7. Nausea and vomiting. Because she has a history of a stricture between the stomach and the duodenum we have consulted Dr. Lawrence. The patient is going to be scoped this morning. We will follow the results. Also, she will be continued on Protonix. 8. Chronic obstructive pulmonary disease. The patient is not in exacerbation. The patient is an active smoker. She has a nicotine patch. She is not in exacerbation and we will continue her home medications. 9. Tobacco abuse. The patient was advised to stop smoking. cc: Sander Carrasco MD
[2017-02-27] MEDS ORDERED: DIPRIVAN 1% ONE (11:38)
[2017-02-27] MEDS ORDERED: XYLOCAINE-MPF 2% ONE (11:55)
--- NOTE | 2017-02-27 13:00 | OPERATIVE NOTE ---
PROCEDURE DATE:02/27/17 PROCEDURE: Esophagogastroduodenoscopy and biopsy. PREOPERATIVE DIAGNOSIS: Nausea and vomiting, history of pyloric channel stricture. POSTOPERATIVE DIAGNOSES: 1. Antral ulcer. 2. Pyloric channel ulcer. 3. Mild edema around the channel but no evidence of obstruction. No gastric retention. DESCRIPTION OF PROCEDURE: After informed consent and adequate intravenous sedation by Anesthesia, the scope introduced in the esophagus. There is mild esophagitis present. Cardia, fundus, body and antrum normal. There is no food retention, however, in the distal antrum close to the channel, there is a deep antral ulcer. Again, in the channel itself there is another ulcer which is a 0.5 cm with some surrounding edema. The area around the ulcer was biopsied for H. pylori. The scope goes through the channel easy, and there is no evidence of any obstruction. The scope was withdrawn. The patient tolerated the procedure well without any immediate complications. cc: Mayank Light MD MTDD
[2017-02-27] MEDS ORDERED: ZOSYN ONE (13:53)
[2017-02-27] MEDS: CARAFATE PO SCH ×2 (17:07→20:12)
[2017-02-27] MEDS: REGLAN LIQUID PO SCH ×2 (17:07→20:14)
[2017-02-27] MEDS: LIDODERM TOP SCH (21:08)
[2017-02-28] MEDS: MORPHINE IV PRN ×7 (01:54→22:37)
[2017-02-28] MEDS: ZOSYN 3.375 GM in NS 50 ML IV SCH ×3 (05:06→18:11)
[2017-02-28] MEDS: LIDODERM TOP SCH ×2 (05:28→20:18)
[2017-02-28] MEDS: CARAFATE PO SCH ×4 (06:16→20:18)
[2017-02-28] MEDS: SYNTHROID PO SCH (06:16)
[2017-02-28] MEDS: REGLAN LIQUID PO SCH ×4 (06:16→20:17)
[2017-02-28] MEDS: PERCOCET-10 PO PRN ×3 (06:17→23:31)
[2017-02-28 07:17] LABS: MANUAL DIFF NEEDED? NO
[2017-02-28 07:22] LABS: BASO% 0.5 % (0.0-0.8); EOS# 0.13 X1000 (0.0-0.7); HEMOGLOBIN 11.5 g/dL (12.0-16.0); IMM GRAN# 0.02 X1000 (0.0-0.04); IMM GRAN% 0.3 % (0.0-0.5); LYMPH# 0.89 X1000 (1.2-3.4); LYMPH% 13.8 % (20.5-51.1); MCH 29.7 PG (27-31); MCHC 33.8 g/dL (33-37); MCV 87.9 FL (81-99); MONO# 0.51 X1000 (0.11-0.59); MONO% 7.9 % (1.7-9.3); MPV 10.6 FL (7.4-10.4); NEUT% 75.5 % (42.2-75.2); PLT 232 X1000 (130-400); RBC 3.87 XMIL (4.2-5.4)
[2017-02-28 07:37] LABS: AGAP 13; BUN 4 mg/dL (8-22); CHLORIDE 101 mmol/L (98-107); COSMO 276; POTASSIUM 2.7 mmol/L (3.5-5.1); SODIUM 140 mmol/L (136-145); TCO2 26 mmol/L (25-35)
[2017-02-28] MEDS: NS 1,000 ML IV SCH (08:47)
[2017-02-28] MEDS: KEPPRA 1,000 MG in NS 100 ML IV SCH (08:47)
[2017-02-28] MEDS: NICODERM PATCH TD SCH (08:48)
[2017-02-28] MEDS: PROTONIX IV SCH ×2 (08:48→20:18)
[2017-02-28] MEDS: SODIUM CHLORIDE 0.9% INJ SCH ×2 (08:48→20:18)
[2017-02-28] MEDS: VANCOMYCIN 1,250 MG in NS 250 ML IV SCH (14:49)
--- NOTE | 2017-02-28 17:02 | PROGRESS NOTE ---
DATE: 02/28/2017 SUBJECTIVE: Patient is definitely more alert and awake. She is still complaining of excruciating pain. The pain in her neck is at least better in comparing with yesterday after morphine. OBJECTIVE: Vital Signs: Temperature 98.6 degrees, heart rate 70, respiratory rate 18, blood pressure 139/75, O2 saturation 97% on room air. General examination: This is a chronically ill- looking and frail, 67-year-old female lying in bed, in no acute distress. HEENT: Head is normocephalic, atraumatic. Anicteric sclerae and pale conjunctivae. Mucous membranes moist. Neck: Supple. No JVD noted. No carotid bruits. No lymphadenopathy. Cardiovascular: S1, S2 heard. No murmurs, gallops, or rubs. Regular rate and rhythm. Respiratory: Clear bilaterally to auscultation. No work of breathing or using accessory muscles. Abdomen: Soft, nontender to palpation. Bowel sounds present. No organomegaly. Extremities: No clubbing, cyanosis, or edema. Peripheral pulses present in both legs. Neurologic exam: Patient is alert and oriented x3. Moves 4 extremities. LABORATORY DATA: Unremarkable CBC and BMP which shows potassium 2.7. ASSESSMENT/PLAN: 1. Seizure disorder. Patient is stable. Patient has been seen by Neurology and EEG showed signs of seizures so she has been started on Keppra 1 g IV q.12 hours. I am going to switch it to p.o. because of mental status is back to her baseline. She needs to have a Neurology followup after discharge. Because we suspected at admission that it may be also a significant infection involved, we started antibiotics on this patient. In this case, vancomycin and Zosyn and blood cultures have been ordered which are negative after 48 hours. I prefer to keep her on those medications for 2 more days and when we have the final results of blood cultures we will stop them. 2. Chronic pain. Patient has been on morphine 4 mg q.3 hours p.r.n. The pain is better although not completely controlled of course because this patient was receiving MS Contin 60 mg p.o. b.i.d. At this time, we are going to continue with the same management and at discharge we may probably restart her usual home medications and follow up with her pain doctor. 3. A history of coronary artery disease. Patient is not complaining of any chest pain. 4. Hypothyroidism. Patient has been restarted on levothyroxine. 5. Acute kidney injury resolved. 6. Hypokalemia. This condition is still present, 2.7 potassium today so we are going to replete it. 7. Nausea and vomiting. The endoscopy showed antral ulcer. Recommendations from GI is to put this patient on Protonix 40 mg p.o. b.i.d. for 3 months and then she may need to be seen by GI to have a possible dilatation of the stricture noted there. 8. COPD. Patient is not in exacerbation. Patient is an active smoker. She will be recommended to stop smoking cigarettes. cc: Sander Carrasco MD
--- NOTE | 2017-02-28 17:37 | PROGRESS NOTE ---
DATE: 02/28/2017 SUBJECTIVE: Patient currently resting in bed. She had an EGD done yesterday by Dr. Light that showed evidence of antral ulcer, pyloric channel ulcer, and mild edema around the channel but no evidence of any obstruction and no gastric retention. The patient has been having intermittent nausea and vomiting. She also has chronic pain attributed to multiple spine and bone problems, and she also has constipation. She denies any fevers, rigors, or chills. She denies any vomiting today. OBJECTIVE: Vital signs: Temperature 98.6, pulse rate 78, respiratory rate 18, blood pressure 139/75, saturating 92% on room air. General Appearance: Thinly built, lying in bed, in no distress. HEENT: Mild pallor. No icterus. Neck: Supple. Abdomen: Soft, nontender, nondistended. Bowel sounds heard. No guarding or rebound. Extremities: No cyanosis, clubbing, and edema. Neurologic: She is alert, awake, oriented x3. LABS: Hemoglobin and hematocrit 11.5 and 34, white count of 6.4, platelet count of 232,000. Sodium 140, potassium 2.7, chloride 101, bicarb 26, anion gap 13, BUN of 4, creatinine 0.6, glucose of 100, calcium is 8. IMPRESSION AND PLAN: 1. Pyloric channel ulcer. In this regard she is going to need proton pump inhibitors twice daily for 3 months and then can be weaned down to once daily for another 3 months. She will take small frequent meals. 2. Will start her on Carafate 1 g q.6 hours. 3. She may need repeat EGD in 3 months to document healing of the ulcer and if she does develop pyloric stenosis she may need pyloric channel dilation. 4. Seizure disorder. Being monitored by the neurology and primary care team. 5. Coronary disease. Stable. 6. Chronic neck pain secondary to multiple back surgeries. She is on high doses of morphine and Percocet. This is being managed by primary care team. 7. Hypothyroidism. On levothyroxine. 8. Acute kidney injury. Resolved. 9. Constipation. We will start her on MiraLAX once or twice daily. 10. Gastrointestinal prophylaxis with proton pump inhibitors as above. 11. Chronic obstructive pulmonary disease. The patient was counseled to quit smoking. 12. I discussed plan of care with the patient and family. All questions were answered. cc: MD Sander Blanc MD
[2017-02-28] MEDS: POTASSIUM CHLORIDE 60 MEQ in NS 500 ML IV SCH (19:35)
[2017-02-28] MEDS: MIRALAX PO SCH (20:17)
[2017-02-28] MEDS: DULCOLAX PR SCH (20:17)
[2017-02-28] MEDS: KEPPRA PO SCH (20:18)
[2017-02-28] MEDS: ATIVAN IV PRN (23:31)
[2017-03-01] MEDS: ZOSYN 3.375 GM in NS 50 ML IV SCH ×3 (00:55→12:20)
[2017-03-01] MEDS: POTASSIUM CHLORIDE 60 MEQ in NS 500 ML IV SCH (01:55)
[2017-03-01] MEDS: MORPHINE IV PRN ×6 (05:08→22:39)
[2017-03-01] MEDS: LOVENOX SUBQ SCH (05:09)
[2017-03-01] MEDS: ATIVAN IV PRN ×2 (05:26→22:45)
[2017-03-01] MEDS: REGLAN LIQUID PO SCH ×4 (06:50→22:43)
[2017-03-01] MEDS: CARAFATE PO SCH ×4 (06:50→22:43)
[2017-03-01] MEDS: SYNTHROID PO SCH (06:50)
[2017-03-01 07:11] LABS: MANUAL DIFF NEEDED? NO
[2017-03-01 07:14] LABS: BASO% 0.3 % (0.0-0.8); EOS# 0.11 X1000 (0.0-0.7); EOS% 1.5 % (0.0-10.0); HEMATOCRIT 36.2 % (37.0-47.0); HEMOGLOBIN 12.1 g/dL (12.0-16.0); IMM GRAN# 0.02 X1000 (0.0-0.04); IMM GRAN% 0.3 % (0.0-0.5); LYMPH# 1.08 X1000 (1.2-3.4); LYMPH% 14.4 % (20.5-51.1); MCH 29.4 PG (27-31); MCHC 33.4 g/dL (33-37); MCV 88.1 FL (81-99); MONO# 0.64 X1000 (0.11-0.59); MONO% 8.5 % (1.7-9.3); MPV 10.6 FL (7.4-10.4); PLT 216 X1000 (130-400); RBC 4.11 XMIL (4.2-5.4)
[2017-03-01 07:42] LABS: CALCIUM 8.6 mg/dL (8.8-10.2); POTASSIUM 3.8 mmol/L (3.5-5.1)
[2017-03-01] MEDS: NICODERM PATCH TD SCH (10:08)
[2017-03-01] MEDS: VANCOMYCIN 1,250 MG in NS 250 ML IV SCH (10:08)
[2017-03-01] MEDS: KEPPRA PO SCH ×2 (10:09→22:43)
[2017-03-01] MEDS: PROTONIX IV SCH ×2 (10:09→22:42)
[2017-03-01] MEDS: SODIUM CHLORIDE 0.9% INJ SCH ×2 (10:09→22:42)
[2017-03-01] MEDS: MIRALAX PO SCH ×2 (10:09→22:44)
[2017-03-01] MEDS: NS 1,000 ML IV SCH ×4 (10:20→21:05)
[2017-03-01] MEDS: PERCOCET-10 PO PRN ×2 (11:09→18:54)
--- NOTE | 2017-03-01 16:03 | PROGRESS NOTE ---
DATE: 03/01/2017 SUBJECTIVE: Patient is more alert now, awake and has been like that for the last couple of days. She is still complaining of moderate neck pain. Better in comparing with yesterday because of morphine. OBJECTIVE: Vital Signs: Temperature 98.1 degrees, heart rate 82, respiratory 21, blood pressure 155/77, O2 saturation 93% on room air. General Examination: This is a chronically ill-looking and frail, 67-year-old female, looking older than her age, lying in bed, in no acute distress. HEENT: Head is normocephalic, atraumatic. Anicteric sclerae and pale conjunctivae. Mucous membranes moist. Neck: Supple. No JVD noted. No carotid bruits. No lymphadenopathy. No thyromegaly. Cardiovascular: S1, S2 heard. No murmurs, gallops, or rubs. Regular rate and rhythm. Respiratory: Clear bilaterally to auscultation. No work of breathing or using accessory muscles. Abdomen: Soft, nontender to palpation. Bowel sounds present. No organomegaly. Extremities: No clubbing, cyanosis, or edema. Peripheral pulses present in both legs. Neurological: Patient is alert and oriented x3. Moves 4 extremities. LABORATORY DATA: The labs are unremarkable except BMP that shows normal potassium and creatinine 1.5. ASSESSMENT AND PLAN: 1. Seizure disorder. The patient is stable. The patient has been admitted to the hospital for altered mental status and evaluated by neurology. They found out on the EEG and clinically that she has seizure so she was started on Keppra 1 g IV q.12 hours which has been changed to oral. 2. Mental status. She is doing much better. She will need to be seen by Dr. Lawrence, a neurologist in [place], who has seen this patient before. We have started antibiotics on admission because of suspicion from the family for possible [employer] infection. So far, the white cell count has been negative and blood cultures are negative four days after the were drawn, so I am going to go ahead and stop vancomycin and Zosyn. 3. Chronic pain. Patient has been on morphine 4 mg q.3 hours. It is somewhat better, the pain, but definitely she wants to have MS Contin 60 mg p.o. b.i.d. started. I think it is reasonable to restart the home medication but we are not going to provide any prescription for this medication upon discharge. 4. Coronary artery disease. Patient is not complaining of any chest pain at all. We will continue with the same management. 5. Acute kidney injury. The creatinine started to be get higher and I think 1 of the culprits could be the vancomycin that this patient has been on for last 4 days, so we are going to stop the antibiotics and start IV fluids. In this we are going to increase the rate of fluids from 100 to 150 per hour and see how this patient does. 6. Hypokalemia, resolved. 7. Nausea and vomiting. The endoscopy showed antral ulcer. Recommendation from GI to put this patient on Protonix 40 mg p.o. b.i.d. for 3 months and then she may need to be seen by a GI doctor for possible dilatation of this stricture noted there in the esophagus. 8. Chronic obstructive pulmonary disease. Patient is not in any exacerbation. Patient is an active smoker. We will plan to advise to quit smoking. 9. Physical deconditioning. Apparently physical therapy has mentioned to family that she is able to stand up. I saw personally this patient trying to stand up, going to the bathroom. The family specifically reports that they can take care of her so we will check labs tomorrow and if everything is okay we will discharge this patient home with home health. cc: Sander Carrasco MD
--- NOTE | 2017-03-01 17:30 | PROGRESS NOTE ---
DATE: 03/01/2017 SUBJECTIVE: Patient currently resting in bed. She has moved her bowels once today. She describes bowel movements as brown in color. She denies any current nausea or vomiting, vomiting blood or passing blood in the stools. Denies any fever or chills. OBJECTIVE: Vital signs: 98.2, pulse rate 79, respiratory rate 17, blood pressure 125/85, saturating 100% on room air. General appearance: Thinly built, lying in bed, in no distress. HEENT: Mild pallor. No icterus. Neck: Supple. Abdomen: Soft, nontender, nondistended. Bowel sounds are present. Extremities: No cyanosis or clubbing. 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 Neurologic-lozano she is alert, awake, oriented. LABS: Hemoglobin and hematocrit is 12.1 and 36.2, white count of 7.5, platelet count of 2.6, MCV of 88.1. Sodium 140, potassium 3.8, chloride 106, bicarb 22, anion gap 15, BUN of 8, creatinine 1.5, glucose 112, calcium 6.6. IMPRESSION AND PLAN: 1. Nausea and vomiting has now resolved. She was noted to have an antral/ pyloric channel ulcer on EGD by Dr. Light. The biopsies also are currently pending. The patient will be getting Protonix twice daily for 3 months and then she will be weaned down to Protonix once daily for another 3 months. She will need a possible EGD in 3-6 months for possible dilation of the pylorus if symptomatic. 2. Constipation. She will continue MiraLAX twice daily. On the baseline patient uses bathroom once a week, but I encouraged her to move the bowels at least once or twice a day as she is on a high dose of narcotics. 3. The patient will continue on gastroesophageal reflux lifestyle changes, avoid excessive tea, coffee, soda, tomatoes, onions, and spicy foods. 4. The patient has history of seizure disorder being monitored by the primary team. 5. Patient has chronic pain. She is on Ms Contin 60 mg p.o. b.i.d. and morphine 4 mg every 3 hours. She follows with the [facility] in [place]. 6. Patient has history of coronary artery disease and kidney injury, which are stable. 7. GI prophylaxis with PPIs and bowel regimen MiraLAX. The above plan has been discussed with the patient and family. cc: Dr. Ender Lawrence MD [facility]ITALPraveena
[2017-03-01] MEDS: DULCOLAX PR SCH (22:43)
[2017-03-01] MEDS: LIDODERM TOP SCH (22:50)
[2017-03-02] MEDS: MORPHINE IV PRN ×5 (01:32→14:28)
[2017-03-02] MEDS: ATIVAN IV PRN ×2 (01:32→04:46)
[2017-03-02] MEDS: NS 1,000 ML IV SCH ×2 (04:15→11:14)
[2017-03-02 06:52] LABS: MANUAL DIFF NEEDED? NO
--- NOTE | 2017-03-02 06:54 | Diag Imaging Result Doc PS360 ---
EXAM: CT HEAD W/O CONTRAST HISTORY: fall TECHNIQUE: CT brain without contrast. Dose reduction protocol. COMPARISON: 02/13/2017 FINDINGS: No parenchymal hemorrhage. No epidural or subdural hematoma. No subarachnoid hemorrhage. No mass identified on this noncontrasted exam. No hydrocephalus. There are ischemic appearing changes in the supine. Anterior portions of each parietal lobe. These are not definitely present on the prior exam. Mild atrophy. No skull fracture. No sinus opacification. IMPRESSION: 1.No hemorrhage. No injury. 2.Ischemic appearing changes in the parietal lobes. An MRI is suggested. Electronically signed by Rolando Reynolds 03/02/2017 6:52 AM
[2017-03-02] MEDS: REGLAN LIQUID PO SCH ×3 (06:59→15:13)
[2017-03-02] MEDS: CARAFATE PO SCH ×3 (07:00→15:12)
[2017-03-02] MEDS: SYNTHROID PO SCH (07:00)
[2017-03-02] MEDS: LOVENOX SUBQ SCH (07:00)
[2017-03-02] MEDS: PERCOCET-10 PO PRN ×2 (07:00→15:12)
[2017-03-02 07:21] LABS: BASO% 0.6 % (0.0-0.8); EOS# 0.22 X1000 (0.0-0.7); EOS% 3.5 % (0.0-10.0); HEMATOCRIT 31.8 % (37.0-47.0); HEMOGLOBIN 10.5 g/dL (12.0-16.0); IMM GRAN# 0.03 X1000 (0.0-0.04); IMM GRAN% 0.5 % (0.0-0.5); LYMPH% 14.4 % (20.5-51.1); MCH 29.7 PG (27-31); MCV 90.1 FL (81-99); MONO# 0.61 X1000 (0.11-0.59); MONO% 9.7 % (1.7-9.3); MPV 11.5 FL (7.4-10.4); NEUT% 71.3 % (42.2-75.2); PLT 151 X1000 (130-400); RBC 3.53 XMIL (4.2-5.4)
[2017-03-02 07:30] LABS: CALCIUM 8.4 mg/dL (8.8-10.2); POTASSIUM 3.3 mmol/L (3.5-5.1)
[2017-03-02] MEDS ORDERED: POTASSIUM CHLORIDE 60 MEQ in NS 500 ML IV ONE (07:42)
[2017-03-02] MEDS: KEPPRA PO SCH ×2 (07:53→08:57)
[2017-03-02] MEDS: NICODERM PATCH TD SCH ×2 (07:54→08:03)
[2017-03-02] MEDS: MIRALAX PO SCH (08:01)
[2017-03-02 11:40] VITALS: BP 138/67
[2017-03-02] MEDS: SODIUM CHLORIDE 0.9% INJ SCH (11:40)
[2017-03-02] MEDS: PROTONIX IV SCH (11:40)
--- NOTE | 2017-03-02 11:56 | PROGRESS NOTE ---
DATE: 03/02/2017 SUBJECTIVE: Patient is resting in bed. She denies any fever and chills. Denies any nausea vomiting. She is eating better. She moved her bowels today x2. She had liquid brown stool. VITAL SIGNS: 97.8 degrees, pulse of 79, respiratory rate 18, blood pressure 150 /72, saturating 99% on room air. OBJECTIVE: General Appearance: Thinly built, lying in bed, in no distress. HEENT: Mild pallor. No icterus. Neck: Supple. Abdomen: Soft, nontender, nondistended. Bowel sounds. Extremities: No cyanosis, clubbing. Neurologic: She is alert, awake, oriented. LABS: Hemoglobin and hematocrit is 10.5 and 31.8, white count 6.26, platelet count of 151,000. Sodium 140, potassium 3.3, chloride 108, bicarb 22, anion gap of 14, BUN 7, creatinine 1.7. Glucose of 93, calcium 8.4. IMPRESSION AND PLAN: 1. Anemia. Hematocrit has dropped. I will keep her on Iron-C b.i.d. and multivitamin daily. She will need to have outpatient colonoscopy if her anemia persists or worsens. Keep close eye on CBC with PCP. 2. She has a gastric antral ulcer and pyloric channel ulcer. An EGD done on by Dr. Light. The biopsies are currently pending. 3. Chronic pain. She is on opioids. 4. Constipation. We will continue on MiraLAX twice daily. 5. Patient will return to clinic in 4 weeks to discuss the biopsy results. She was also to slowly try to wean down to the lowest possible dosage of narcotics. 6. She will continue PPIs twice daily for 3 months and then in 3 months we may have to re-scope her to document healing of ulcer. cc: MD Dr. Ender Blanc
--- NOTE | 2017-03-03 11:17 | DISCHARGE SUMMARY ---
ADMISSION DATE: 02/23/2017 DISCHARGE DATE: 03/02/2017 CONSULTATIONS: 1. Dr. Molly Schmid with Neurology. 2. Dr. Light with Gastroenterology. PERTINENT PROCEDURES: 1. Head CT was a negative exam. 2. Chest CT showed emphysema and fibrosis likely left basilar atelectasis, possible aneurysm to the proximal descending and thoracic aorta and proximal abdominal aorta. There is at least moderate atherosclerosis including the coronary arteries. EEG showed very frequent epileptiform discharge emanating from the right frontotemporal head region. At times approaching 1 per second frequency. 3. Brain MRI showed nonspecific small areas of increased signal which may be mild microvascular ischemic changes. No recent infarct from this. 4. Followup head CT showed no hemorrhage, no injury, ischemic appearing changes in the parietal lobes. SURGICAL PROCEDURES: EGD with biopsy performed by Dr. Light showed antral ulcer, pyloric channel ulcer, mild edema around the channel but no evidence of obstruction. No gastric retention. DISCHARGE DIAGNOSES: 1. Seizure disorder. She has been evaluated by Neurology. EEG clinically showed seizures. Patient was started on IV Keppra she is being transitioned to oral Keppra. She is stable. 2. Altered mental status. The patient was followed by Neurology who felt it was secondary to seizures. She will continue to follow up with Neurology that she had seen before in [place], Dr. Lawrence. In the beginning they were suspicious for a possible FOOT GATHERER infection; however, that has been ruled out with negative cultures. Her antibiotics were discontinued. 3. Chronic pain syndrome. The patient has been on morphine 4 mg IV but still requesting her MS Contin. She has also been instructed by GI in reference to her constipation she will need to slowly try to wean down to the lowest possible dosage of her narcotics. 4. Coronary artery disease. No complaints of chest pain. 5. Acute kidney injury. I felt it was secondary to the vancomycin that has been discontinued. She was started on IV fluids. 6. Hypokalemia improving. 7. Nausea, vomiting. Esophagogastroduodenoscopy showed antral ulcer. The patient was placed on Protonix b.i.d. for 3 months, and then follow up in 4 weeks with GI. 8. Chronic obstructive pulmonary disease without exacerbation. She is an active smoker. I did do daily smoking cessation. 9. Physical deconditioning. We have had physical therapy working with the patient. Physical therapy has recommended further physical therapy but the family is insistent that they can care for the patient at home. 10. Constipation. Patient will continue MiraLAX twice a day. 11. Anemia. She will continue on Icar C b.i.d., MVI. She may need an outpatient colonoscopy for anemia if it persists or worsens and will need to follow up in the clinic with Dr. Lawrence in 4 weeks to discuss her biopsy results, and to rescope to document healing of her ulcer. HOSPITAL COURSE: Briefly, Ms. Serrano is a 67-year-old female with a past medical history of coronary artery disease, hypothyroidism chronic pain syndrome, esophageal strictures who was brought to the ED for seizures. Her had witnessed her having what looked to be a tonic- clonic seizure moving upper and lower extremities. There was also a sphincter relaxation with some feces and urine in the underwear that lasted 2-3 minutes. In the ED she had another episode of seizure for which we were consulted for further management. They also reported that the patient was having nausea and vomiting twice daily during the last 3 days prior to her admission and was unable to take her usual pain medications. The patient was started on Ativan as well as IV morphine. Initially felt she was having a seizure due to opiate withdrawal. I consulted Neurology and did a full neurological workup. Head CT, and MRI were negative. EEG did show very frequent epileptiform discharges from the right frontotemporal region which is very suggestive of focal cortical irritability and increased propensity for more seizures. The patient was loaded with Keppra IV and kept on maintenance Keppra IV b.i.d. and then switched to p.o. There was some concern for some FOOT GATHERER infection because it had been reported a year earlier she had some type of FOOT GATHERER infection. She was prophylactically started on IV antibiotics, that was ruled out and those antibiotics were stopped. Once the patient was more awake and alert she was able to undergo her EGD with biopsy. We did find an antral ulcer, a large jejunal ulcer. Mild edema around the jejunum, no evidence of obstruction. No gastric retention. She was started on PPI twice daily for 3 months and then will be weaned down daily for another 3 months and take small frequent meals. Started on Carafate. Repeat an EGD in 3 months to document the healing of her ulcer. For her constipation continue on MiraLAX once or twice daily. We also discussed the need for her to try to cut back on her opiates to the lowest dose possible for her constipation. Her nausea and vomiting completely resolved. Continue GERD lifestyle change and avoid excessive tea, coffee, soda, tomatoes, fast foods. Neurologically the patient is more awake and alert. She did have some physical deconditioning. She is working with physical therapy. They did mention that she would need some type of rehab for physical therapy at home. However, the family was insistent that they could take care of her at home. The patient was discharged on 03/02/2017. VITAL SIGNS: Temperature was 97.8 degrees, heart rate was 90, respirations were 18, blood pressure is 138/67, O2 is 100% on room air. DISCHARGE DIET: GI soft. DISCHARGE MEDICATIONS: 1. Dulcolax 10 mg MN at bedtime. 2. Keppra 1000 mg p.o. b.i.d. 3. Synthroid 112 mcg p.o. daily. 4. MS Contin 60 mg p.o. b.i.d. 5. Percocet 10/325, 1 each p.o. q.8 hours p.r.n. 6. Protonix 40 mg p.o. b.i.d. 7. MiraLAX 17 g p.o. b.i.d. 8. Phenergan 25 mg p.o. q.12 hours p.r.n. 9. Carafate 1 g p.o. before meals and at bedtime. 10. Zanaflex 4 mg p.o. b.i.d. FOLLOW-UP: Ms. Serrano is being discharged home with family. She is to follow up with Dr. Lawrence in 3-4 weeks for results of her biopsy and possible EGD and colonoscopy. She will continue to follow Dr. Lawrence in [place], her regular neurologist. Dictated by LORETA Dawson for Sander Carrasco MD cc: Sander Carrasco MD
== END 2017-03-02 17:30 | disposition home or self-care (01) ==
LOC: ED 19:31 → SUATTDRO 23:08 → 3S 23:08 → 3N 02-27 11:20
PROVIDERS: ATTEND Internal Medicine